=== PATIENT | female | born 1980 | race Caucasian/White ===

== ENCOUNTER 2017-06-03 09:09 | Emergency (ER) | payer OTHER ==
[~2017-06-03] VITALS: Ht 177.8 cm; Wt 132.4 kg
[~2017-06-03 09:09] MED LIST: LEVEMIR100 UNIT/1 INJ; METFORMIN HCL1000 MG PO; MONESSA PO; OMEPRAZOLE40 MG PO; PHENTERMINE H37.5 MG PO
[2017-06-03] MEDS ORDERED: ONDANSETRON HCL INJ 2 MG/ML VIAL IV STA (09:35)
[2017-06-03] MEDS ORDERED: SODIUM CHLORIDE 0.9% 1000ML 1,000 ML IV STA (09:35)
[2017-06-03] MEDS ORDERED: HYDROMORPHONE 1MG/1ML INJ IV STA (09:35)
[2017-06-03] MEDS ORDERED: PROMETHAZINE 25MG/ NS 50ML (IV) IV ONE (10:00)
[2017-06-03 10:13] LABS: BASOPHILS % 0.3 % (0.0-1.0); EOSINOPHILS # (AUTO) 0.1 (0.0-0.4); EOSINOPHILS % 1.2 % (0.0-6.0); HEMATOCRIT 38.6 % (34.2-44.1); HEMOGLOBIN 12.9 g/dL (12.0-16.0); LYMPHOCYTES # (AUTO) 1.8 (1.0-3.2); MEAN CORPUSCULAR HEMOGLOBIN 28.7 pg (28-32); MEAN CORPUSCULAR HGB CONC 33.4 g/dL (31-35); MONOCYTES # (AUTO) 0.6 (0.2-0.8); MONOCYTES % 5.4 % (4.4-11.3); NEUTROPHILS # (AUTO) 8.7 (2.1-6.9); NEUTROPHILS % 76.8 % (38.7-80.0); PLATELET COUNT 293 x10e3/uL (140-360); RED BLOOD COUNT 4.49 x10e6/uL (3.6-5.1)
[2017-06-03] MEDS ORDERED: DIATRIZOATE MEGL/DIATRIZOA SOD 30 ML BTL PO ONE (10:31)
[2017-06-03 10:34] LABS: ALANINE AMINOTRANSFERASE 14 IU/L (0-55); ALBUMIN 3.1 g/dL (3.5-5.0); ALBUMIN/GLOBULIN RATIO 0.9 (0.8-2.0); ALKALINE PHOSPHATASE 51 IU/L (40-150); AMYLASE 33 U/L (25-125); ANION GAP 13.6 mmol/L (8-16); BLOOD UREA NITROGEN 6 mg/dL (7-26); BUN/CREATININE RATIO 8 (6-25); CALCIUM 8.8 mg/dL (8.4-10.2); CARBON DIOXIDE 27 mmol/L (22-29); CHLORIDE 100 mmol/L (98-107); CREATININE, SERUM 0.75 mg/dL (0.57-1.11); EST GLOMERULAR FILTRATION RATE > 60 ML/MIN (60-); GLUCOSE 168 mg/dL (74-118); LIPASE 28 U/L (8-78); POTASSIUM 3.6 mmol/L (3.5-5.1); SODIUM 137 mmol/L (136-145)
[2017-06-03 11:40] LABS: BILIRUBIN,URINE NEGATIVE (NEGATIVE); KETONES,URINE NEGATIVE (NEGATIVE); LEUKOCYTE ESTERASE ,URINE NEGATIVE (NEGATIVE); NITRITE,URINE NEGATIVE (NEGATIVE); PROTEIN,URINE DIPSTICK NEGATIVE (NEGATIVE); URINE UROBILINOGEN 0.2 mg/dL (0.2 - 1)
[2017-06-03 11:41] LABS: CLARITY,URINE SL CLOUDY (CLEAR); COLOR,URINE YELLOW (YELLOW)
--- NOTE | 2017-06-03 11:41 | Diagnostic Imaging Report ---
PROCEDURE: CT ABDOMEN AND PELVIS WITH CONTRAST TECHNIQUE: The abdomen and pelvis were scanned utilizing a multidetector helical scanner from the diaphragm to the lesser trochanter after the IV administration of 100 cc of Isovue 370 and the oral administration of Gastrografin intermixed with water. Coronal and sagittal multiplanar reformations were obtained. DLP: 912.11 mGy-cm COMPARISON: None. INDICATIONS: ABDOMINAL PAIN FINDINGS: LOWER THORAX: Normal. HEPATOBILIARY: No focal hepatic lesions. No biliary ductal dilatation. SPLEEN: No splenomegaly. PANCREAS: No focal masses or ductal dilatation. ADRENALS: No adrenal nodules. KIDNEYS/URETERS: No hydronephrosis, stones, or solid mass lesions. Nonobstructing 3 mm stone at the left ureterovesical junction. PELVIC ORGANS/BLADDER: There is 4.4 cm right adnexal cyst and a 2.6 cm left adnexal cyst. PERITONEUM / RETROPERITONEUM: No free air or fluid. LYMPH NODES: No lymphadenopathy. VESSELS: Unremarkable. GI TRACT: No distention or wall thickening. Calcium containing pills in the cecum. There are clips near the cecum and appendiceal region. Single clip is present in the descending colon. BONES AND SOFT TISSUES: Mild degenerative changes of the thoracic and lumbar spine. IMPRESSION: 1. Nonobstructing distal left ureteral stone. 2. Bilateral adnexal cysts. Cb Prado D.O. Dictated by: Cb Prado D.O. on 06/03/2017 at 11:49 Electronically approved by: Cb Prado D.O. on 06/03/2017 at 11:49
[2017-06-03 12:01] LABS: BACTERIA,URINE RARE /HPF; EPITHELIAL CELLS,URINE RARE /LPF; RBC,URINE 0-5 /HPF (0-5); WBC,URINE (MAN) 0-5 /HPF (0-5)
[2017-06-03 12:45] VITALS: BP 141/96
[2017-06-03] MEDS ORDERED: SODIUM CHLORIDE 0.9% 50ML 50 ML ONE (17:35)
[2017-06-03] MEDS ORDERED: IOPAMIDOL 370 MG/ML 200 ML INFUS..BTL INJ ONE (17:35)
== END 2017-06-03 12:52 | disposition home or self-care (01) ==
LOC: ER 09:09
DX: R10.12 Left upper quadrant pain (principal); R11.2 Nausea with vomiting, unspecified; N20.1 Calculus of ureter; E11.9 Type 2 diabetes mellitus without complications; K21.9 Gastro-esophageal reflux disease without esophagitis
CPT/HCPCS: 36415; 74177; 80053; 81001; 82150; 83690; 85025; 87086; 96360; 99284; J1170; J2550; J7030; Q9967

== ENCOUNTER → 2017-06-26 | Outpatient (CLI) | payer OTHER ==
[~2017-06-26] MED LIST changes: +SINCALIDE 3 MCG/VIAL INJ ONE
--- NOTE | 2017-06-26 09:22 | Diagnostic Imaging Report ---
PROCEDURE:LIMITED ABDOMINAL ULTRASOUND COMPARISON:None. INDICATIONS:RUQ Pain FINDINGS: Liver: 15.1 cm. Increased hepatic parenchymal echogenicity. No focal mass. Main portal vein: 1.2 cm. Hepatopedal flow. Gallbladder: No echogenic calculi, gallbladder wall thickening, or pericholecystic fluid. Common Bile Duct: 4.0 mm. No echogenic filling defect. Sonographic Baez's sign: Negative. Right kidney: 12.8 cm. No solid or cystic mass, echogenic calculi, or hydronephrosis. Normal parenchymal echogenicity. The pancreas, inferior vena cava, and aorta were insufficiently visualized secondary to increased body habitus and overlying bowel gas. Ascites: None. CONCLUSION: 1. No acute sonographic abnormality. 2. Hepatic steatosis. Dictated by: Zach Anderson M.D. on 06/26/2017 at 9:31 Electronically approved by: Zach Anderson M.D. on 06/26/2017 at 9:31
--- NOTE | 2017-06-26 18:40 | Diagnostic Imaging Report ---
Hepatobiliary Scan with Gallbladder Ejection Fraction Clinical information: 36 F with RUQ abdominal pain; irritable bowel syndrome. Technique: Following intravenous administration of 6.8 millicuries of Tc-99m mebrofenin, dynamic images of the abdomen in the anterior projection were obtained through 30 minutes. Sincalide (CCK analog) 2.9 micrograms was administered intravenously over 30 minutes with additional imaging for determination of gallbladder ejection fraction. Discussion: Perfusion of the liver is normal. Extraction of tracer by the liver parenchyma is normal. Tracer appears promptly within the biliary tract. The gallbladder begins to fill at 5 minutes post injection of tracer and fills adequately. Tracer is seen in the small bowel by 25 minutes. There is no contractile response by the gallbladder to the pharmacologic dose of sincalide. No emptying of the gallbladder occurs during the 30 minute infusion. Impression: 1. Filling of the gallbladder excludes acute cystic duct obstruction/acute cholecystitis. 2. The gallbladder ejection fraction is undefined as there is no emptying of the gallbladder during the infusion of sincalide. This absence of a contractile response to sincalide supports the clinical diagnosis of chronic cholecystitis/gallbladder dyskinesia. Signed by: Dr. Shante Whittington M.D. on 06/26/2017 6:37 PM
== END ==
LOC: US 07:20
PROVIDERS: ATTEND Internal Medicine Gastroenterology
DX: R10.11 Right upper quadrant pain (principal)
CPT/HCPCS: 76705; 78227; A9537; J2805

== ENCOUNTER → 2017-08-02 | Day surgery (SDC) | payer OTHER ==
[2017-07-29 10:23] LABS: ALANINE AMINOTRANSFERASE 11 IU/L (0-55); ALBUMIN 3.3 g/dL (3.5-5.0); ALBUMIN/GLOBULIN RATIO 0.9 (0.8-2.0); ALKALINE PHOSPHATASE 49 IU/L (40-150); BLOOD UREA NITROGEN 7 mg/dL (7-26); BUN/CREATININE RATIO 11 (6-25); CALCIUM 8.8 mg/dL (8.4-10.2); CARBON DIOXIDE 27 mmol/L (22-29); CHLORIDE 99 mmol/L (98-107); CREATININE, SERUM 0.63 mg/dL (0.57-1.11); EST GLOMERULAR FILTRATION RATE > 60 ML/MIN (60-); GLUCOSE 142 mg/dL (74-118); SODIUM 135 mmol/L (136-145)
[2017-07-29 10:46] LABS: BASOPHILS # (AUTO) 0.1 (0.0-0.1); BASOPHILS % 0.6 % (0.0-1.0); EOSINOPHILS # (AUTO) 0.1 (0.0-0.4); EOSINOPHILS % 1.1 % (0.0-6.0); HEMATOCRIT 36.7 % (34.2-44.1); HEMOGLOBIN 12.1 g/dL (12.0-16.0); LYMPHOCYTES % 19.4 % (18.0-39.1); MEAN CORPUSCULAR HEMOGLOBIN 28.9 pg (28-32); MEAN CORPUSCULAR VOLUME 87.6 fL (81-99); MONOCYTES # (AUTO) 0.7 (0.2-0.8); MONOCYTES % 6.4 % (4.4-11.3); NEUTROPHILS # (AUTO) 7.5 (2.1-6.9); NEUTROPHILS % 72.2 % (38.7-80.0); PLATELET COUNT 306 x10e3/uL (140-360); RED BLOOD COUNT 4.19 x10e6/uL (3.6-5.1); RED CELL DISTRIBUTION WIDTH 12.4 % (11.7-14.4)
[~2017-08-02] MED LIST changes: +BUPIVACAINE 0.25% 30ML SDV INJ ONE; +CEFAZOLIN SOD 1 GM VIAL ONE; +DEXAMETHASONE SOD PHOS INJ 4 MG/ML VIAL ONE; +DICYCLOMINE HCL20 MG PO; +FEMYNOR PO; +FENTANYL CITRATE/PF 100MCG/2 ML INJ ONE; +GLYCOPYRROLATE INJ 1MG/ 5 ML SYR ONE; +LABETALOL HCL IV 5 MG/ML 20ML MDV ONE; +LIDOCAINE HCL 2% LOCAL INJ 5 ML SDV VIAL INJ ONE; +MIDAZOLAM HCL 2 MG/2 ML VIAL ONE; +NEOSTIGMINE 5 MG/5ML SYR ONE; +ONDANSETRON HCL INJ 2 MG/ML VIAL ONE; +PANTOPRAZOLE SO40 MG PO; +PROMETHAZINE HC25 M1 PO; +PROPOFOL IV EMULSION 10 MG/ML 20 ML VIAL ONE; +ROCURONIUM BROMIDE 10 MG/ML 5ML VIAL ONE; +SEVOFLURANE INHAL SOLN 250 ML PEN BTL ONE; -SINCALIDE 3 MCG/VIAL INJ ONE; +SULFASALAZINE500 MG PO; +TRULICITY SQ; +VSL #3 PO
--- OUTSIDE RECORDS SUMMARY | 2017-08-02 05:30 | XMS REPORT ---
Author Author [facility] Address Unknown Phone Unavailable Care Team Providers Care Case Repairer Name Role Phone ALLI HILL Unavailable Unavailable CARROLL LARSON Unavailable Unavailable Problems This patient has no known problems. Allergies, Adverse Reactions, Alerts This patient has no known allergies or adverse reactions. Medications This patient has no known medications. Results Test Description Test Time Test Comments Text Results Atomic Results Result Comments US ABDOMEN LIMITED [place] [address] Patient Name: ENRIQUE SO MR #: [id number] : 1980 Age/Sex: 36/F Req #: [id number] Adm Physician: Ordered by: ALLI HILL MD Report #: [id number] Location: US Room/Bed: Procedure: [id number] US/US ABDOMEN LIMITED Exam Date: Exam Time: REPORT STATUS: Signed PROCEDURE: LIMITED ABDOMINAL ULTRASOUND COMPARISON: None. INDICATIONS: RUQ Pain FINDINGS: Liver: 15.1 cm. Increased hepatic parenchymal echogenicity. No focal mass. Main portal vein: 1.2 cm. Hepatopedal flow. Gallbladder: No echogenic calculi, gallbladder wall thickening, or pericholecystic fluid. Common Bile Duct: 4.0 mm. No echogenic filling defect. Sonographic Baez's sign: Negative. Right kidney: 12.8 cm. No solid or cystic mass, echogenic calculi, or hydronephrosis. Normal parenchymal echogenicity. The pancreas, inferior vena cava, and aorta were insufficiently visualized secondary to increased body habitus and overlying bowel gas. Ascites : None. CONCLUSION: 1. No acute sonographic abnormality. 2. Hepatic steatosis. Dictated by: Warner Booth M.D. on 2017 at 9:31 Electronically approved by: Warner Booth M.D. on 06/26/2017 at 9:31 Dictated By: WARNER BOOTH MD 0 Transcribed By: CHYNA on 06/26/17930 COPY TO: ALLI HILL MD HEPTOBILIARY W PHARM [place] [address] Patient Name: ENRIQUE SO MR #: [id number] : 1980 Age/Sex: 36/F Req #: [id number] Adm Physician: Ordered by: ALLI HILL MD Report #: [id number] Location: Room/Bed: Procedure: [id number] NM/HEPTOBILIARY W PHARM Exam Date: 06/26/17 Exam Time: 1500 REPORT STATUS: Signed Hepatobiliary Scan with Gallbladder Ejection Fraction Clinical information: 36 F with RUQ abdominal pain; irritable bowel syndrome. Technique: Following intravenous administration of 6.8 millicuries of Tc-99m mebrofenin, dynamic images of the abdomen in the anterior projection were obtained through 30 minutes. Sincalide (CCK analog) 2.9 micrograms was administered intravenously over 30 minutes with additional imaging for determination of gallbladder ejection fraction. Discussion: Perfusion of the liver is normal. Extraction of tracer by the liver parenchyma is normal. Tracer appears promptly within the biliary tract. The gallbladder begins to fill at 5 minutes post injection of tracer and fills adequately. Tracer is seen in the small bowel by 25 minutes. There is no contractile response by the gallbladder to the pharmacologic dose of sincalide. No emptying of the gallbladder occurs during the 30 minute infusion. Impression: 1. Filling of the gallbladder excludes acute cystic duct obstruction/acute cholecystitis. 2. The gallbladder ejection fraction is undefined as there is no emptying of the gallbladder during the infusion of sincalide. This absence of a contractile response to sincalide supports the clinical diagnosis of chronic cholecystitis/gallbladder dyskinesia. Signed by: Dr. Reyna Whittington M.D. on 6:37 PM Dictated By: REYNA WHITTINGTON MD 36 Transcribed By: SAVANNAH on 06/26/171836 COPY TO: ALLI HILL MD CT ABDOMEN/PELVIS W [place] [address] Patient Name: ENRIQUE SO MR #: [id number] : 1980 Age/Sex: 36/F Req #: [id number] Adm Physician: Ordered by: CARROLL LARSON MD Report #: [id number] Location: ER Room/Bed: Procedure: [id number] CT/CT ABDOMEN/PELVIS W Exam Date: 06/03/17 Exam Time: 1109 REPORT STATUS: Signed PROCEDURE: CT ABDOMEN AND PELVIS WITH CONTRAST TECHNIQUE: The abdomen and pelvis were scanned utilizing a multidetector helical scanner from the diaphragm to the lesser trochanter after the IV administration of 100 cc of Isovue 370 and the oral administration of Gastrografin intermixed with water. Coronal and sagittal multiplanar reformations were obtained. DLP: 912.11 mGy- cm COMPARISON: None. INDICATIONS: ABDOMINAL PAIN FINDINGS: LOWER THORAX: Normal. HEPATOBILIARY: No focal hepatic lesions. No biliary ductal dilatation. SPLEEN: No splenomegaly. PANCREAS: No focal masses or ductal dilatation. ADRENALS: No adrenal nodules. KIDNEYS/ URETERS: No hydronephrosis, stones, or solid mass lesions. Nonobstructing 3 mm stone at the left ureterovesical junction. PELVIC ORGANS/BLADDER: There is 4.4 cm right adnexal cyst and a 2.6 cm left adnexal cyst. PERITONEUM / RETROPERITONEUM: No free air or fluid. LYMPH NODES: No lymphadenopathy. VESSELS: Unremarkable. GI TRACT: No distention or wall thickening. Calcium containing pills in the cecum. There are clips near the cecum and appendiceal region. Single clip is present in the descending colon. BONES AND SOFT TISSUES: Mild degenerative changes of the thoracic and lumbar spine. IMPRESSION: 1. Nonobstructing distal left ureteral stone. 2. Bilateral adnexal cysts. Angelia Prado D.O. Dictated by: Angelia Prado D.O. on 06/03/2017 at 11:49 Electronically approved by: Angelia Prado D.O. on 06/03/2017 at 11:49 Dictated By: ANGELIA PRADO DO [id number] COPY TO: CARROLL LARSON MD
--- NOTE | 2017-08-02 10:07 | Operative Report ---
DATE OF PROCEDURE: August 02, 2017 PREOPERATIVE DIAGNOSES 1. Biliary dyskinesia. 2. Obesity. 3. History of irritable bowel syndrome. POSTOPERATIVE DIAGNOSES 1. Biliary dyskinesia. 2. Obesity. 3. History of irritable bowel syndrome. 4. Cholesterolosis. INDICATIONS AND FINDINGS: A morbidly obese 36-year-old female admitted for laparoscopic cholecystectomy. History of multiple GI symptoms including cramps, nausea, diarrhea and pyrosis. She had EGD and colonoscopy preoperatively as well as a HIDA scan that revealed zero ejection fraction, but no stones. She preoperatively was advised and clearly understood that no guarantees were made regarding the results of the surgery. INTRAOPERATIVE FINDINGS: Cholesterolosis as well as chronic adhesions of the omentum to the gallbladder consistent with chronic acalculous cholecystitis. DESCRIPTION OF PROCEDURE: With the patient lying on the operating table in the supine position, after administration of general anesthesia, she was prepped and draped for laparoscopic cholecystectomy. The procedure was begun by establishing a pneumoperitoneum in the right upper quadrant mid-clavicular line because of her obesity. A pneumoperitoneum was insufflated to 15 mm of pressure, and then the 5 trocar was placed in that location. Under direct vision with a camera, we placed a 10-11 umbilical trocar. Then the 10-mm camera was introduced in the umbilical site. The patient was rotated to the left and with the head up, and we placed a 10-mm subxiphoid port, and finally a right anterior axillary line trocar was placed. The gallbladder was retracted cephalad using grasping forceps through the two 5-mm trocars, and the dissection on the gallbladder was begun, detaching the omentum that was stuck to the gallbladder as well as the stomach until we exposed the hepatoduodenal ligament. The cystic duct was identified as well as the cystic artery and common duct. At that point, we transected the cystic duct distally 3 times and once proximally. Then the cystic artery was transected between titanium clips also, and then the gallbladder was taken down from the liver bed using electrocautery dissection. The gallbladder was detached and placed in an Endo bag and removed through the umbilical port easily. Then we reinsufflated the pneumoperitoneum, inspected the operative field and irrigated the abdomen. There was no bile leak, no bleeding, no apparent bowel injury. Before closing, we removed all the fluid and then closed the wounds using #0 Vicryl for the umbilical fascia, 3-0 Vicryl for the subcutaneous tissue in that location as well as the subxiphoid port, and the skin of all the ports was closed using nay. Marcaine 0.25% with epinephrine was given as a local block at the end of the case. Job#: [id number]
== END | disposition home or self-care (01) ==
LOC: OR 05:28
PROVIDERS: ATTEND Surgery
DX: K81.1 Chronic cholecystitis (principal); K58.9 Irritable bowel syndrome, unspecified; K21.9 Gastro-esophageal reflux disease without esophagitis; E66.01 Morbid (severe) obesity due to excess calories; E11.9 Type 2 diabetes mellitus without complications; N20.0 Calculus of kidney; Z72.0 Tobacco use; Z01.812 Encounter for preprocedural laboratory examination; Z79.4 Long term (current) use of insulin
CPT/HCPCS: 36415 ×2; 47562; 80053; 81025; 82948; 85025; 88304; C1766; J0690; J1100; J2001; J2250; J2405; J3490

== ENCOUNTER 2017-10-28 18:40 | Emergency (ER) | payer OTHER ==
[~2017-10-28] VITALS: Ht 177.8 cm; Wt 132.4 kg
[2017-10-28] MEDS ORDERED: SODIUM CHLORIDE 0.9% 1000ML 1,000 ML IV STA (21:36)
[2017-10-28] MEDS ORDERED: MORPHINE SULFATE 4 MG/ML SYR IV STA (21:36)
[2017-10-28] MEDS ORDERED: ONDANSETRON HCL 4 MG ORAL DISINTEGRATING TAB PO NR (21:45)
[2017-10-28 22:03] LABS: BILIRUBIN,URINE NEGATIVE (NEGATIVE); CLARITY,URINE CLEAR (CLEAR); COLOR,URINE YELLOW (YELLOW); KETONES,URINE 1+ (NEGATIVE); LEUKOCYTE ESTERASE ,URINE 1+ (NEGATIVE); NITRITE,URINE NEGATIVE (NEGATIVE); PROTEIN,URINE DIPSTICK NEGATIVE (NEGATIVE); URINE UROBILINOGEN 0.2 mg/dL (0.2 - 1)
[2017-10-28 22:04] LABS: BASOPHILS # (AUTO) 0.1 (0.0-0.1); BASOPHILS % 0.5 % (0.0-1.0); EOSINOPHILS # (AUTO) 0.1 (0.0-0.4); EOSINOPHILS % 0.6 % (0.0-6.0); HEMATOCRIT 38.7 % (34.2-44.1); HEMOGLOBIN 12.9 g/dL (12.0-16.0); LYMPHOCYTES # (AUTO) 2.1 (1.0-3.2); LYMPHOCYTES % 17.3 % (18.0-39.1); MEAN CORPUSCULAR HGB CONC 33.3 g/dL (31-35); MONOCYTES # (AUTO) 0.9 (0.2-0.8); MONOCYTES % 7.1 % (4.4-11.3); NEUTROPHILS # (AUTO) 8.9 (2.1-6.9); NEUTROPHILS % 74.2 % (38.7-80.0); PLATELET COUNT 281 x10e3/uL (140-360); RED BLOOD COUNT 4.45 x10e6/uL (3.6-5.1); RED CELL DISTRIBUTION WIDTH 13.3 % (11.7-14.4)
[2017-10-28 22:16] LABS: BACTERIA,URINE RARE /HPF; EPITHELIAL CELLS,URINE MODERATE /LPF; MUCUS,URINE FEW (RARE)
[2017-10-28 22:22] LABS: ALANINE AMINOTRANSFERASE 13 IU/L (0-55); ALBUMIN 3.4 g/dL (3.5-5.0); ALBUMIN/GLOBULIN RATIO 0.9 (0.8-2.0); ALKALINE PHOSPHATASE 48 IU/L (40-150); ANION GAP 16.1 mmol/L (8-16); BLOOD UREA NITROGEN 8 mg/dL (7-26); BUN/CREATININE RATIO 12 (6-25); CALCIUM 9.4 mg/dL (8.4-10.2); CARBON DIOXIDE 24 mmol/L (22-29); CHLORIDE 100 mmol/L (98-107); CREATININE, SERUM 0.67 mg/dL (0.57-1.11); EST GLOMERULAR FILTRATION RATE > 60 ML/MIN (60-); GLUCOSE 82 mg/dL (74-118); POTASSIUM 4.1 mmol/L (3.5-5.1); SODIUM 136 mmol/L (136-145)
== END 2017-10-28 23:01 | disposition left against medical advice (07) ==
LOC: ER 18:40
DX: R10.31 Right lower quadrant pain (principal); R11.0 Nausea; E11.9 Type 2 diabetes mellitus without complications; K50.90 Crohn's disease, unspecified, without complications; K58.9 Irritable bowel syndrome, unspecified; K21.9 Gastro-esophageal reflux disease without esophagitis
CPT/HCPCS: 36415; 80053; 81001; 85025; 99282

== ENCOUNTER → 2017-10-28 | Outpatient (CLI) | payer OTHER ==
[~2017-10-28] MED LIST changes: -BUPIVACAINE 0.25% 30ML SDV INJ ONE; -CEFAZOLIN SOD 1 GM VIAL ONE; -DEXAMETHASONE SOD PHOS INJ 4 MG/ML VIAL ONE; -FENTANYL CITRATE/PF 100MCG/2 ML INJ ONE; -GLYCOPYRROLATE INJ 1MG/ 5 ML SYR ONE; -LABETALOL HCL IV 5 MG/ML 20ML MDV ONE; -LIDOCAINE HCL 2% LOCAL INJ 5 ML SDV VIAL INJ ONE; -MIDAZOLAM HCL 2 MG/2 ML VIAL ONE; -NEOSTIGMINE 5 MG/5ML SYR ONE; -ONDANSETRON HCL INJ 2 MG/ML VIAL ONE; -PROPOFOL IV EMULSION 10 MG/ML 20 ML VIAL ONE; -ROCURONIUM BROMIDE 10 MG/ML 5ML VIAL ONE; -SEVOFLURANE INHAL SOLN 250 ML PEN BTL ONE
== END ==
LOC: DX 09-25 08:16
PROVIDERS: ATTEND Internal Medicine Gastroenterology
DX: R10.9 Unspecified abdominal pain (principal); R11.0 Nausea
CPT/HCPCS: 74250; 81025

== ENCOUNTER → 2017-12-13 | Outpatient (CLI) | payer OTHER ==
--- NOTE | 2017-12-13 13:11 | Diagnostic Imaging Report ---
PROCEDURE:X-RAY ABDOMEN - KUB COMPARISON:Same day CT. INDICATIONS:CALCULUS OF THE KIDNEY FINDINGS: There is a non-obstructed bowel-gas pattern. There are no calcifications projected over the renal shadows, expected course of the ureters or bladder. There are no acute osseous abnormalities. Right upper quadrant cholecystectomy clips. CONCLUSION: Normal abdominal radiograph. Dictated by: Efrem Uriarte M.D. on 12/13/2017 at 13:15 Electronically approved by: Efrem Uriarte M.D. on 12/13/2017 at 13:15
--- NOTE | 2017-12-13 13:26 | Diagnostic Imaging Report ---
EXAM: CT Abdomen and Pelvis WITHOUT contrast INDICATION: \S\CALCULUS OF KIDNEY COMPARISON: CT dated 06/03/2017 TECHNIQUE: Abdomen and pelvis were scanned utilizing a multidetector helical scanner from the lung base to the pubic symphysis without administration of IV contrast. Absence of intravenous contrast decreases sensitivity for detection of focal lesions and vascular pathology. Coronal and sagittal reformations were obtained. Routine protocol was performed. IV CONTRAST: None ORAL CONTRAST: Water COMPLICATIONS: None RADIATION DOSE: Total DLP: 840.97 mGy*cm Estimated effective dose: (DLP x 0.015 x size factor) mSv CTDIvol has been reviewed. It is below the limits set by the Radiation Protocol Committee (RPC). FINDINGS: LINES and TUBES: None. LOWER THORAX: Unremarkable HEPATOBILIARY: Unenhanced liver is unremarkable. Hepatomegaly. No biliary ductal dilation. GALLBLADDER: Cholecystectomy. SPLEEN: No splenomegaly. PANCREAS: No focal masses or ductal dilatation. ADRENALS: No adrenal nodules KIDNEYS/URETERS: No hydronephrosis. Limited for evaluation of renal parenchyma without intravenous contrast. No stones. GI TRACT: No abnormal distention, wall thickening, or evidence of bowel obstruction. Appendix is surgically absent. PELVIC ORGANS/BLADDER: Unremarkable. Pelvic phleboliths. LYMPH NODES: No lymphadenopathy. VESSELS: Unremarkable. PERITONEUM / RETROPERITONEUM: No free air or fluid. BONES: Unremarkable. SOFT TISSUES: Unremarkable. IMPRESSION: 1. No nephrolithiasis or evidence of obstructive urolithiasis. Signed by: Dr. Efrem Uriarte MD on 12/13/2017 1:23 PM
== END ==
LOC: CT 11:56
PROVIDERS: ATTEND Urology
DX: N20.0 Calculus of kidney (principal)
CPT/HCPCS: 74018; 74176

== ENCOUNTER → 2018-08-07 | Outpatient (CLI) | payer OTHER ==
[~2018-08-07] MED LIST changes: +BIRTH CONTROL; +IRON18 MG; +REGLAN; +TOUJEO SQ; +TRULANCE; +VITAMIN B-121000 MCG PO; +VITAMIN B12-FO1 EACH; +VITAMIN C500 M2; +VITAMIN D
--- NOTE | 2018-08-07 14:58 | Diagnostic Imaging Report ---
Examination: Fluoroscopic small bowel series Clinical indication: Anemia, concern for Crohn's. Comparison examination: CT abdomen and pelvis without contrast 12/13/2017. Technique: Barium was ingested by mouth and multiple fluoroscopic spot images as well as overhead images were obtained of the small bowel. Total fluoroscopy time: 0.4 minutes Air Kerma: 26.3 mGy Findings: Mechanical Design Engineer radiograph shows a nonobstructive bowel gas pattern. Surgical clips are noted in the right lower and right upper quadrant. Regional skeletal structures are intact. No mass effect or organomegaly. Small bowel loops are normal in caliber and distribution. No fixed stricture. Spot compression views of the terminal ileum are unremarkable. Peristalsis, as observed under fluoroscopy, is normal. Transit time is normal. Impression: Unremarkable fluoroscopic small bowel series. Signed by: Dr. Jose Parks M.D. on 08/07/2018 2:55 PM
== END ==
LOC: DX 07:24
PROVIDERS: ATTEND Internal Medicine Gastroenterology
DX: D64.9 Anemia, unspecified (principal)
CPT/HCPCS: 74250; 81025

== ENCOUNTER → 2019-08-21 | Day surgery (SDC) | payer OTHER ==
[~2019-08-21] MED LIST changes: +DEXMEDETOMIDINE HCL 200 MCG/2 ML VIAL ONE; +FENTANYL CITRATE/PF 100MCG/2 ML INJ ONE; +FOLIC ACID PO; +GABAPENTIN300 MG PO; +HYOSCYAMINE 0.125 MG TAB ONE; +METOCLOPRAMIDE HCL 10 MG/2ML VIAL ONE; +MIDAZOLAM HCL 2 MG/2 ML VIAL ONE; +PANTOPRAZOLE 40 MG 10ML VIAL ONE; +PROPOFOL IV EMULSION 10 MG/ML 50 ML VIAL ONE
--- OUTSIDE RECORDS SUMMARY | 2019-08-21 09:19 | XMS REPORT | Summary of Care ---
Author Author Basilio Lopez Unknown Address Unknown Phone Unavailable Care Team Providers Care Certifed Refrigeration Operator Name Role Phone R.N. 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 R.N. * Start : 11-Dec-2017 Active Protonix 40 MG Oral Packet 1 tablet twice a day * Refills: 0 R.N. * Start : 11-Dec-2017 Active Metoclopramide HCl - 10 MG Oral Tablet TAKE 1 TABLET 4 TIMES DAILY, BEFORE MEALS AND AT BEDTIME. * Refills: 0 R.N. * Start : 11-Dec-2017 Active Budesonide 3 MG Oral Capsule Delayed Release Particles 3 tablets daily * Refills: 0 R.N. * Start : 11-Dec-2017 Active SulfaSALAzine 500 MG Oral Tablet TAKE 2 TABLETS TWICE DAILY. Start at 500mg daily, and increase based on titrati on schedule provided. * Quantity: 120 Refills: 1 R.N. * Start : 11-Dec-2017 Active Phentermine HCl - 37.5 MG Oral Capsule TAKE 1 CAPSULE EVERY MORNING BEFORE BREAKFAST. * Quantity: 30 Refills: 0 R.N. * Start : 11-Dec-2017 Active Toujeo SoloStar 300 UNIT/ML Subcutaneous Solution Pen-injector * Refills: 0 R.N. * Start : 11-Dec-2017 Active VSL#3 Oral Capsule * Refills: 0 R.N. * Start : 11-Dec-2017 Active Allergies and Adverse Reactions Name Dates Details codeine (Allergy) Status: Active Past Medical History Name Dates Details History of colon polyps (V12.72, Z86.010) Status: Resolved History of diabetes mellitus (V12.29, Z86.39) Status: Resolved History of gastritis (V12.79, Z87.19) Status: Resolved History of kidney problems (V13.09, Z87.448) Status: Resolved Procedures Procedure Dates Details History of Knee Surgery Completed History of Gallbladder surgery Completed History of Appendectomy Completed History of Wrist fracture repair Completed History of Foot surgery Completed Immunization Name Dates Details Immunizations not documented Family History Name Dates Details Family history of diabetes mellitus (V18.0, Z83.3) Status: Active Name Dates Details Family history of lung cancer (V16.1, Z80.1) Status: Active Family history of diabetes mellitus (V18.0, Z83.3) Status: Active Family history of High cholesterol (272.0, E78.00) Status: Active Family history of hypertension (V17.49, Z82.49) Status: Active Family history of chronic obstructive pulmonary disease (V17.6, Z82.5) Status: Active Social History Name Dates Details - Status: Name Dates Details Former smoker Vital Signs Date Test Result Details No Known Vitals to report Results Date Description Value Details Results not documented Plan of Care Name Dates Details Planned Observations Planned Goals not documented Planned Encounters Appointment; RASHEL IBANEZ M.D. On: 02-Jun-2018 9:45 Instructions Name Dates Details Instructions not documented Encounters Appointment; RASHEL IBANEZ M.D. Encounter Diagnosis: Problem not documented On: 11-Dec-2017 9:30
[2019-08-21 15:10] VITALS: BP 171/82
[2019-08-21 22:14] LABS: WBC,FECAL (FECAL LACTOFERRIN) NEGATIVE (NEGATIVE)
--- NOTE | 2019-08-21 22:55 | Operative Report ---
DATE OF PROCEDURE: 08/21/2019 SURGEON: Juarez Angel MD PROCEDURE: Colonoscopy with polypectomy and biopsies. INDICATIONS FOR COLONOSCOPY: Lower abdominal pain, diarrhea, intermittent. Personal history of colon polyps. MEDICATIONS: The patient was done under MAC, please see anesthesiologist's note. PROCEDURE IN DETAIL: With the patient in left lateral decubitus position, flexible fiberoptic Olympus colonoscope was inserted into the rectum with ease and advanced all the way to the cecum. Mucosa overlying the cecum appeared to be within normal limits. The ileocecal valve was intubated and the scope was advanced into the terminal ileum. Biopsies were obtained. The scope was then withdrawn back into the colon. Mucosa overlying the cecum and ascending colon appeared to be within normal limits. One polyp was hot biopsied from the distal transverse colon and site was hemoclipped x1. Mild patchy inflammatory changes were noted in the left colon and the rectum. Biopsies were obtained. One polyp was hot biopsied from the sigmoid colon. The scope was then retroflexed into the distal rectum and small internal hemorrhoids were noted, none of which were actively bleeding. The scope was then straightened out. It was subsequently withdrawn after securing an adequate stool specimen that was sent for the appropriate stool studies. The patient tolerated the procedure well. IMPRESSION: 1. Transverse colon polyp, hot biopsied and site hemoclipped. 2. Mild patchy left-sided colitis. 3. Sigmoid colon polyp, hot biopsied. 4. Proctitis, mild. 5. Internal hemorrhoids, none actively bleeding. PLAN: Follow up histology. Initiate Bentyl 20 mg one p.o. q.i.d. and VSL #3 one p.o. b.i.d. The patient might benefit from a followup colonoscopy in 3 years. Juarez Angel MD [facility] [place]/MODL /[id number] cc: Angelica Crawford MD
[2019-08-22 14:43] LABS: C DIFFICILE TOXIN A&B AMP PROB NEGATIVE (NEGATIVE)
== END | disposition home or self-care (01) ==
LOC: OR 09:09
PROVIDERS: ATTEND Internal Medicine Gastroenterology
DX: K51.50 Left sided colitis without complications (principal); D12.3 Benign neoplasm of transverse colon; K62.89 Other specified diseases of anus and rectum; K59.00 Constipation, unspecified; K64.8 Other hemorrhoids; K29.70 Gastritis, unspecified, without bleeding; K21.9 Gastro-esophageal reflux disease without esophagitis; K20.8 Other esophagitis; R03.0 Elevated blood-pressure reading, without diagnosis of hypertension; E78.5 Hyperlipidemia, unspecified; E11.9 Type 2 diabetes mellitus without complications; K44.9 Diaphragmatic hernia without obstruction or gangrene; F17.210 Nicotine dependence, cigarettes, uncomplicated; Z88.6 Allergy status to analgesic agent; Z88.8 Allergy status to other drugs, medicaments and biological substances; Z91.018 Allergy to other foods; Z01.810 Encounter for preprocedural cardiovascular examination; Z68.36 Body mass index [BMI] 36.0-36.9, adult; Z87.442 Personal history of urinary calculi; Z80.0 Family history of malignant neoplasm of digestive organs
CPT/HCPCS: 45380; 45384; 81025; 83630; 83993; 87045; 87177; 87328; 87493; 93005; C9113; J2250; J2704; J2765; J3010; 45378

== ENCOUNTER 2020-03-17 12:29 | Emergency (ER) | payer OTHER ==
[~2020-03-17] VITALS: Ht 177.8 cm; Wt 120.3 kg
[~2020-03-17 12:29] MED LIST changes: -DEXMEDETOMIDINE HCL 200 MCG/2 ML VIAL ONE; -FENTANYL CITRATE/PF 100MCG/2 ML INJ ONE; -HYOSCYAMINE 0.125 MG TAB ONE; -METOCLOPRAMIDE HCL 10 MG/2ML VIAL ONE; -MIDAZOLAM HCL 2 MG/2 ML VIAL ONE; -PANTOPRAZOLE 40 MG 10ML VIAL ONE; -PROPOFOL IV EMULSION 10 MG/ML 50 ML VIAL ONE
[2020-03-17] MEDS ORDERED: KETOROLAC TROMETHAMINE 30 MG/ML VIAL IV STA (12:58)
--- NOTE | 2020-03-17 13:04 | Emergency Department Note ---
History of Present Illnes History of Present Illness Chief Complaint: headache starting this morning History of Present Illness This is a 39 year old female . 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 Any updates have been documented here. Past Medical History Past Medical History: Diabetes Other Medical History: IBS, GERD, CHRON'S, Past Surgical History: Cholecysctectomy, Appendectomy Other Surgery: RIGHT KNEE SX Social History Smoking Cessation: Never Smoker Counseling Performed: No Alcohol Use: None Any Illegal Drug Use: No TB Exposure/Symptoms: No Physically hurt or threatened: No Other Last Tetanus: UNK Any Pre-Existing Lines (PICC,: No Is patient up to date on immun: No Review of Systems Review of Systems Constitutional: Reports no symptoms EENTM: Reports no symptoms Cardiovascular: Reports no symptoms Respiratory: Reports no symptoms Gastrointestinal: Reports no symptoms Genitourinary: Reports no symptoms Musculoskeletal: Reports no symptoms Integumentary: Reports no symptoms Neurological: Reports as per HPI Psychological: Reports no symptoms Endocrine: Reports no symptoms Hematological/Lymphatic: Reports no symptoms Review of other systems: All other systems negative Physical Exam Related Data Allergies: Coded Allergies: metformin (Verified Allergy, Severe, 10/28/17) codeine (Verified Allergy, Unknown, 10/28/17) Vital signs reviewed: Yes Physical Exam CONSTITUTIONAL Constitutional: Present well-developed, Present obese HENT HENT: Present normocephalic, Present atraumatic, Present oropharynx clear/moist, Present oropharynx normal EYES Eyes: Reports PERRL, Reports conjunctivae normal NECK Neck: Present ROM normal, Present supple PULMONARY Pulmonary: Present effort normal, Present breath sounds normal CARDIOVASCULAR Cardiovascular: Present regular rhythm, Present heart sounds normal, Present intact distal pulses, Present capillary refill normal GASTROINTESTINAL Abdominal: Present soft, Present bowel sounds normal GENITOURINARY Genitourinary: Present exam deferred SKIN Skin: Present warm, Present dry MUSCULOSKELETAL Musculoskeletal: Present ROM normal NEUROLOGICAL Neurological: Present alert, Present oriented x 3, Present DTRs normal, Present no gross motor or sensory deficits PSYCHOLOGICAL Psychological: Present mood/affect normal, Present behavior normal, Present thought content normal, Present judgement normal Results Laboratory Laboratory cbc wnl except wbc 10.8, chem wnl cardiac markers sent to [facility] because our machine not working U/A trace leukocytes and small blood Cardiac markers wnl Imaging Imaging results reviewed: Yes Impressions cxr and ct brain NAD Diagnostics Tests Diagnostic test(s) reviewed: Yes Diagnostic comments nsr with sinus arrthythmia poor r wave progression otherwisee wnl Assessment & Plan Medical Decision Making MDM headache blood pressure issues resolved without intervention in the ED. Will send home on ultram ( pt states has taken in the past without adverse reaction) and macrobid Assessment & Plan Final Impression: (1) UTI (urinary tract infection) (2) Headache Depart Disposition: HOME, S[facility] Meds Active Scripts Nitrofurantoin Monohyd/M-Cryst (MACROBID 100 MG CAPSULE) 100 Mg Capsule, 100 MG PO BIDWM PRN for uti for 7 Days, #14 CAP 0 Refills Prov:ROLAND CASTILLO MD 03/17/20 Tramadol Hcl (ULTRAM) 50 Mg Tablet, 50 MG PO Q6H PRN for headache for 5 Days, #20 TAB 0 Refills Prov:ROLAND CASTILLO MD 03/17/20 Reported Medications Gabapentin (GABAPENTIN) 300 Mg Capsule, 600 MG PO HS, #60 CAP 08/19/19 Pantoprazole Sodium* (PROTONIX) 40 Mg Tablet.dr, 40 MG PO BID, TAB 08/19/19 [Folic Acid] No Conflict Check, PO DAILY 08/19/19 [Toujeo] No Conflict Check, 5 UNITS SQ DAILY 06/13/18 [ Control] No Conflict Check, DAILY 06/13/18 [Reglan] 4 MG No Conflict Check, 4 MG QID 06/13/18 Sulfasalazine (SULFASALAZINE) 500 Mg Tab, 500 MG PO QID, #30 TAB 07/31/17 [Trulicity] No Conflict Check, 1.5 UNIT SQ WEEKLY 07/31/17 Dicyclomine Hcl (DICYCLOMINE HCL) 20 Mg Tablet, 20 MG PO QID, TAB 07/31/17 Phentermine Hcl (PHENTERMINE HCL) 37.5 Mg Capsule, 37.5 MG PO DAILY 05/24/17 ROLAND CASTILLO MD Mar 17, 2020 13:04
--- OUTSIDE RECORDS SUMMARY | 2020-03-17 13:08 | XMS REPORT | Continuity of Care Document ---
Author Author [facility] t Organization [facility] Address [address] [place] [address] Phone Unavailable Care Team Providers Care Instant Powder Supervisor Name Role Phone ALLI HLIL MD PCP ALLI HILL Attphys Unavailable JADYN STEVENS Attphys Unavailable RASHEL IBANEZ M.D. Attphys Unavailable Floyd LARSON Attphys Unavailable Payers Payer Name Policy Type Policy Number Effective Date Expiration Date Macho wade [facility] [id number] 2011 00:00:00 [facility] Problems Condition Name Condition Details Condition Category Status Onset Date Resolution Date Last Treatment Date Treating Clinician Comments Source 719.4 - PAIN IN JOINT 719. 4 - PAIN IN JOINT Active 04/14/2012 BRITTNI Saldaña Diagnosis Active 2012-04-14 00:01:00 2012-04-14 09:55:00 [facility] History of colon polyps History of colon polyps Problem HL7.CCDAR2 Res olved [facility] History of diabetes mellitus History of diabetes mellitus Proble m HL7.CCDAR2 Resolved [facility] History of gastritis History of gastritis Problem HL7.CCDAR2 Resolved [facility] History of kidney problems History of kidney problems Problem HL 7.CCDAR2 Resolved [facility] Insulin dependent diabetes mellitus Insulin dependent diabet es mellitus Problem HL7.CCDAR2 Active [facility] Crohn's disease Crohn's disease Problem HL7.CCDAR2 Active [facility] Allergies, Adverse Reactions, Alerts Allergy Name Allergy Type Status Severity Reaction(s) Onset Date Inacti ve Date Treating Clinician Comments Source Codeine Allergy to Substance Active 2017-10-28 00:00:00 [facility] Metformin Allergy to Substance Active Severe 2017-10-28 00:00:00 [facility] Family History Family Member Diagnosis Comments Start Date Stop Date Source Mother Family history of diabetes mellitus [facility] Father Family history of lung cancer [facility] Father Family history of diabetes mellitus [facility] Father Family history of High cholesterol [facility] Father Family history of hypertension [facility] Father Family history of chronic obstructive pulmonary disease [facility] Social History Smoking Status Start Date Stop Date Source Former smoker [facility] Medications Ordered Medication Name Filled Medication Name Start Date Stop Da te Current Medication? Ordering Clinician Indication Dosage Frequency Signature (SIG) Comments Components Source Dicyclomine HCl - 20 MG Oral Tablet Dicyclomine HCl - 20 MG Oral Tablet 2017-12-11 00:00:00 Yes R.N. Q0.25D TAKE 1 TABLET 4 TI MES DAILY. [facility] Protonix 40 MG Oral Packet Protonix 40 MG Oral Packet 2017-12-11 00:0 0:00 Yes R.N. 1 tablet twice a day [facility] Metoclopramide HCl - 10 MG Oral Tablet Metoclopramide HCl - 10 MG Oral Tablet 2017-12-11 00:00:00 Yes R.N. Q0.25D TAKE 1 TABLET 4 TIMES DAILY, BEFORE MEALS AND AT BEDTIME. [facility] Budesonide 3 MG Oral Capsule Delayed Release Particles Budesonide 3 MG Oral Capsule Delayed Release Particles 2017-12-11 00:00:00 Yes R.N. 3 tablets daily [facility] SulfaSALAzine 500 MG Oral Tablet SulfaSALAzine 500 MG Oral T ablet 2017-12-11 00:00:00 Yes R.N. TAKE 2 TAB LETS TWICE DAILY. Start at 500mg daily, and increase based on titration schedule provided. [facility] Phentermine HCl - 37.5 MG Oral Capsule Phentermine HCl - 37. 5 MG Oral Capsule 2017-12-11 00:00:00 Yes R.N. QD TAKE 1 CAPSULE EVERY MORNING BEFORE BREAKFAST. [facility] Toufederico SoloStar 300 UNIT/ML Subcutaneous Solution Pen- injector Toujeo SoloStar 300 UNIT/ML Subcutaneous Solution Pen-injector 2017-12-11 00:00:00 Wayne s R.Tu [facility] VSL#3 Oral Capsule VSL#3 Oral Capsule 2017-12-11 00:00:00 Yes R.N. [facility] Dicyclomine Hcl 20 Mg Tablet Dicyclomine Hcl 20 Mg Tablet Y es 20 Four Times Daily [facility] Femynor Femynor Yes 1 Daily [facility] Insulin Detemir (Levemir) 100 Unit/1 Ml Vial Insulin D etemir (Levemir) 100 Unit/1 Ml Vial Yes 10 Daily [facility] Pantoprazole Sodium (Protonix) 40 Mg Tablet. Pantopr azole Sodium (Protonix) 40 Mg Tablet. Yes 40 Twice A Day C [facility] Phentermine Hcl 37.5 Mg Capsule Phentermine Hcl 37.5 Mg Capsule Yes 1 Daily [facility] Promethazine Hcl 25 Mg Tablet Promethazine Hcl 25 Mg Tablet Yes 25 As Needed as needed for Nausea [facility] Sulfasalazine 500 Mg Tab Sulfasalazine 500 Mg Tab Yes 500 Four Times Daily [facility] Trulicity Trulicity Yes 1.5 Weekly [facility] Vsl #3 Vsl #3 Yes 1 Twice A Day [facility] Monessa , 1 Tab Oral Monessa , 1 Tab Oral 2017-07-31 00:00:00 No 1 Daily [facility] Omeprazole 40 Mg Capsule., 40 Mg Oral Omeprazole 40 Mg Cap joseph., 40 Mg Oral 2017-07-31 00:00:00 No 40 Daily [facility] Metformin Hcl 1,000 Mg Tablet, 1000 Mg Oral Metformin Hcl 1,000 Mg Tablet, 1000 Mg Oral 2017-05-24 00:00:00 No 1000 Twice A Day [facility] Vital Signs Vital Name Observation Time Observation Value Comments Source BP Systolic 2017-12-11 09:32:00 128 mm[Hg] [facility] BP Diastolic 2017-12-11 09:32:00 82 mm[Hg] [facility] Height 2017-12-11 09:32:00 70 [in_us] [facility] Weight 2017-12-11 09:32:00 261 [lb_av] [facility] Body Mass Index Calculated 2017-12-11 09:32:00 37.45 kg/m2 [facility] Temperature 2017-12-11 09:32:00 97.8 [degF] Method: Temporal [facility] Heart Rate 2017-12-11 09:32:00 80 /min [facility] Respiration Rate 2017-12-11 09:32:00 16 /min [facility] Procedures Procedure Date / Time Performed Performing Clinician [facility] e Computed tomography of abdomen and pelvis with contrast 2017 00:00:00 CAREN MEDINA [facility] LAPAROSCOPIC CHOLECYSTECTOMY 2017-08-02 00:00:00 ASAF CLAUDIO [facility] US abdomen limited 2017-06-26 00:00:00 ALLI HILL [facility] Computed tomography of abdomen and pelvis with contrast 2016 00:00:00 CARROLL LARSON [facility] EGD BIOPSY SINGLE/MULTIPLE 2017-05-27 00:00:00 ALLI HILL [facility] COLONOSCOPY W/LESION REMOVAL 2017-05-27 00:00:00 ALLI HILL [facility] COLONOSCOPY W/LESION REMOVAL 2017-05-27 00:00:00 ALLI HILL [facility] History of Knee Surgery [facility] of Appendectomy [facility] History of Wrist fracture repair [facility] History of Foot surgery [facility] Encounters Start Date/Time End Date/Time Encounter Type Admission Type Att[facility] Care Department Encounter ID Source 2017-12-11 09:30:00 2017-12-11 09:30:00 Appointment; RASHEL IBANEZ M .D. BAI, KRISTY, M.D. [facility] [id number] [facility] 2017-10-28 18:40:00 2017-10-28 23:01:00 Departed Emergency Room [facility] [id number] [facility] 2017-10-28 07:38:00 2017-10-28 07:38:00 Registered Clinic YARA SERGIO ALLI [facility] [id number] [facility] 2017-08-02 05:28:00 2017-08-02 05:28:00 Registered Surgical Day Care [facility] [id number] [facility] 2017-06-26 07:20:00 2017-06-26 07:20:00 Registered Clinic ALLI AVILA [facility] [id number] [facility] 2017-06-03 09:09:00 2017-06-03 12:52:00 Departed Emergency Room ER CARROLL LARSON [facility] [id number] [facility] 2017-05-27 08:06:00 2017-05-27 08:06:00 Registered Surgical Day Care [facility] [id number] [facility] Results Test Description Test Time Test Comments Results Result Comments Source SMALL BOWEL SERIES 2018-08-07 14:51:00 [place] [address] 5 Patient Name: ENRIQUE SO MR #: [id number] : 1980 Age/Sex: 37/F Req #: [id number] Adm Physician: Ordered by: ALLI HILL MD Report #: [id number] Location: DX Room/Bed: Procedure: [id number] DX/SMALL BOWEL SERIES Exam Date: 08/07/18 Exam Time: 729 REPORT STATUS: Signed Examination: Fluoroscopic small bowel series Clinical indication: Anemia, concern for Crohn's. Comparison examination: CT abdomen and pelvis without contrast 12/13/2017. Technique: Barium was ingested by mouth and multiple fluoroscopic spot images as well as overhead images were obtained of the small bowel. Total fluoroscopy time: 0.4 minutes Air Kerma: 26.3 mGy Findings: Roll Threader Operator radiograph shows a nonobstructive bowel gas pattern. Surgical clips are noted in the right lower and right upper quadrant. Regional skeletal structures are intact. No mass effect or organomegaly. Small bowel loops are normal in caliber and distribution. No fixed stricture. Spot compression views of the terminal ileum are unremarkable. Peristalsis, as observed under fluoroscopy, is normal. Transit time is normal. Impression: Unremarkable fluoroscopic small bowel series. Signed by: Dr. Corey Parks M.D. on 08/07/2018 2:55 PM Dictated By: COREY PARKS MD [id number] Transcribed By: SAVANNAH on 08/07/18 3853 COPY TO: ALLI HILL MD ABDOMEN-1VIEW (KUB) 2017-12-13 13:15:00 [place] [address] Patient Name: ENRIQUE SO MR #: [id number] : 1980 Age/Sex: 37/F Req #: [id number] Adm Physician: Ordered by: JADYN STEVENS MD Report #: [id number] Location: CT Room/Bed: Procedure: [id number] DX/ABDOMEN-1VIEW (KUB) Exam Date: 12/13/17 Exam Time: 1215 REPORT STATUS: Signed PROCEDURE: X-RAY ABDOMEN - KUB COMPARISON: Same day CT. INDICATIONS: CALCULUS OF THE KIDNEY FINDINGS: There is a non- obstructed bowel-gas pattern. There are no calcifications projected over the renal shadows, expected course of the ureters or bladder. There are no acute osseous abnormalities. Right upper quadrant cholecystectomy clips. CONCLUSION: Normal abdominal radiograph. Dictated by: Efrem Wheeler M.D. on 12/13/2017 at 13:15 Electronically approved by: Efrem Wheeler M.D. on 12/13/2017 at 13:15 Dictated By: EFREM WHEELER MD 1315 Transcribed By: CHYNA on 12/13/17 1315 COPY TO: JADYN STEVENS MD CT ABDOMEN/PELVIS WO 2017-12-13 13:11:00 [place] [address] Patient Name: ENRIQUE SO MR #: [id number] : 1980 Age/Sex: 37/F Req #: [id number] Adm Physician: Ordered by: JADYN STEVENS MD Report #: [id number] Location: CT Room/Bed: Procedure: [id number] CT/CT ABDOMEN/PELVIS WO Exam Date: 12/13/17 Exam Time: 1233 REPORT STATUS: Signed EXAM: CT Abdomen and Pelvis WITHOUT contrast INDICATION: COMPARISON: CT dated 06/03/2017 TECHNIQUE: Abdomen and pelvis were scanned utilizing a multidetector helical scanner from the lung base to the pubic symphysis without administration of IV contrast. Absence of intravenous contrast decreases sensitivity for detection of focal lesions and vascular pathology. Coronal and sagittal reformations were obtained. Routine protocol was performed. IV CONTRAST: None ORAL CONTRAST: Water COMPLICATIONS: None RADIATION DOSE: Total DLP: 840.97 mGy*cm Estimated effective dose: (DLP x 0.015 x size factor) mSv CTDIvol has been reviewed. It is below the limits set by the Radiation Protocol Committee (RPC). FINDINGS: LINES and TUBES: None. LOWER THORAX: Unremarkable HEPATOBILIARY: Unenhanced liver is unremarkable. Hepatomegaly. No biliary ductal dilation. GALLBLADDER: Cholecystectomy. SPLEEN: No splenomegaly. PANCREAS: No focal masses or ductal dilatation. ADRENALS: No adrenal nodules KIDNEYS/URETERS: No hydronephrosis. Limited for evaluation of renal parenchyma without intravenous contrast. No stones. GI TRACT: No abnormal distention, wall thickening, or evidence of bowel obstruction. Appendix is surgically absent. PELVIC ORGANS/BLADDER: Unremarkable. Pelvic phleboliths. LYMPH NODES: No lymphadenopathy. VESSELS: Unremarkable. PERITONEUM / RETROPERITONEUM: No free air or fluid. BONES: Unremarkable. SOFT TISSUES: Unremarkable. IMPRESSION: 1. No nephrolithiasis or evidence of obstructive urolithiasis. Signed by: Dr. Efrem Wheeler MD on 12/13/2017 1:23 PM Dictated By: EFREM WHEELER MD 1323 Transcribed By: SAVANNAH on 12/13/17 1323 COPY TO: JADYN STEVENS MD Sodium Level 2017-10-28 22:22:00 Test Item Sodium Level (test code = 2951-2) 136 136-145 [facility] Ctibc1520-58-49 22:22:00* Test Item Value Reference Range Interpretation Comments Potassium Level (test code = 2823-3) 4.1 3.5-5.1 [facility] HospitalChloride [id number] 22:22:00* Test Item Value Reference Range Interpretation Comments Chloride Level (test code = 2075-0) 100 98-107 [facility] HospitalCarbon Dioxide Ajqjo1976-82-73 22:22:00* Test Item Value Reference Range Interpretation Comments Carbon Dioxide Level (test code = 8-9) 24 22-29 [facility] HospitalAnion [id number] 22:22:00* Test Item Value Reference Range Interpretation Comments Anion Gap (test code = 00409-4) 16.1 8-16 H [facility] HospitalBlood Urea Iirvrgjt3127-83-98 22:22:00* Test Item Value Reference Range Interpretation Comments Blood Urea Nitrogen (test code = 3094-0) 8 7-26 [facility] HospitalCreatinine2018-05-14 22:22:00* Test Item Value Reference Range Interpretation Comments Creatinine (test code = 2160-0) 0.67 0.57-1.11 [facility] HospitalBUN/Creatinine Tjrvh0081-38-33 22:22:00* Test Item Value Reference Range Interpretation Comments BUN/Creatinine Ratio (test code = 3097-3) 12 6-25 [facility] HospitalEstimat Glomerular Filtration Rate 2017-10-28 22:22:00* Test Item Value Reference Range Interpretation Comments Estimat Glomerular Filtration Rate (test code = 01829-1) 60- >60 Ranges were taken from the National Kidney Disease Education Program and the [facility] literature.Reference ranges:60 or greater: Umfuid10-25 ( for 3 consecutive months): Chronic kidney disease 15 or less: Kidney failureStephens Memorial HospitalGlucose Oyqmv1253-33-61 22:22:00* Test Item Value Reference Range Interpretation Comments Glucose Level (test code = DCK0556) 82 74-118 [facility] HospitalCalcium Inilw2449-72-34 22:22:00* Test Item Value Reference Range Interpretation Comments Calcium Level (test code = 89599-5) 9.4 8.4-10.2 [facility] HospitalTotal Mbgaxsxgj1656-99-92 22:22:00* Test Item Value Reference Range Interpretation Comments Total Bilirubin (test code = 1975-2) 0.3 0.2-1.2 [facility] HospitalAspartate Amino Transf (AST/SGOT) 2017-10-28 22:22:00* Test Item Value Reference Range Interpretation Comments Aspartate Amino Transf (AST/SGOT) (test code = Aspartate Amino Transf (AST/SGOT)) 16 5-34 [facility] HospitalAlanine Aminotransferase (ALT/SGPT) 2017-10-28 22:22:00* Test Item Value Reference Range Interpretation Comments Alanine Aminotransferase (ALT/SGPT) (test code = 1742-6) 13 0-55 [facility] HospitalTotal Iycboqk5577-27-96 22:22:00* Test Item Value Reference Range Interpretation Comments Total Protein (test code = 2885-2) 7.4 6.5-8.1 [facility] HospitalAlbumin2018-05-14 22:22:00* Test Item Value Reference Range Interpretation Comments Albumin (test code = 1751-7) 3.4 3.5-5.0 L [facility] HospitalGlobulin2018-05-14 22:22:00* Test Item Value Reference Range Interpretation Comments Globulin (test code = 22283-3) 4.0 2.3-3.5 H [facility] HospitalAlbumin/Globulin Hhyxw6980-27-61 22:22:00 * Test Item Value Reference Range Interpretation Comments Albumin/Globulin Ratio (test code = 1759-0) 0.9 0.8-2.0 [facility] HospitalAlkaline Ulvavdicgrl1234-30-56 22:22:00* Test Item Value Reference Range Interpretation Comments Alkaline Phosphatase (test code = 6768-6) 48 40-150 [facility] HospitalUrine [id number] 22:16:00* Test Item Value Reference Range Interpretation Comments Urine WBC (test code = 5821-4) 6-10 0-5 H [facility] HospitalUrine WEC5082-25-15 22:16:00* Test Item Value Reference Range Interpretation Comments Urine RBC (test code = 11775-3) 6-10 0-5 H [facility] HospitalUrine Aznewlkv7834-92-40 22:16:00* Test Item Value Reference Range Interpretation Comments Urine Bacteria (test code = 91400-7) RARE NONE [facility] HospitalUrine Epithelial Ycvdh0371-91-77 22:16:00 * Test Item Value Reference Range Interpretation Comments Urine Epithelial Cells (test code = 40191-1) MODERATE NONE [facility] HospitalUrine Aqczl6028-09-54 22:16:00* Test Item Value Reference Range Interpretation Comments Urine Mucus (test code = 8247-9) FEW RARE H [facility] HospitalWhite Blood Wdqpb2858-70-80 22:04:00* Test Item Value Reference Range Interpretation Comments White Blood Count (test code = 6690-2) 12.05 4.8-10.8 H [facility] HospitalRed Blood Tsteg5812-66-34 22:04:00* Test Item Value Reference Range Interpretation Comments Red Blood Count (test code = 789-8) 4.45 3.6-5.1 [facility] HospitalHemoglobin2018-05-14 22:04:00* Test Item Value Reference Range Interpretation Comments Hemoglobin (test code = 51810-9) 12.9 12.0-16.0 [facility] HospitalHematocrit2018-05-14 22:04:00* Test Item Value Reference Range Interpretation Comments Hematocrit (test code = 4544-3) 38.7 34.2-44.1 [facility] HospitalMean Corpuscular Aeiqjc6816-64-51 22:04:00* Test Item Value Reference Range Interpretation Comments Mean Corpuscular Volume (test code = 787-2) 87.0 81-99 [facility] HospitalMean Corpuscular Evkgaeeeam7807-37-39 22:04:00* Test Item Value Reference Range Interpretation Comments Mean Corpuscular Hemoglobin (test code = 785-6) 29.0 28-32 [facility] HospitalMean Corpuscular Hemoglobin Concent 2017-10-28 22:04:00* Test Item Value Reference Range Interpretation Comments Mean Corpuscular Hemoglobin Concent (test code = 786-4) 33.3 31-35 [facility] HospitalRed Cell Distribution Smkmg8496-99-75 22:04:00* Test Item Value Reference Range Interpretation Comments Red Cell Distribution Width (test code = 62340-9) 13.3 11.7 -14.4 [facility] HospitalPlatelet Btdrr8890-02-25 22:04:00* Test Item Value Reference Range Interpretation Comments Platelet Count (test code = 777-3) 281 140-360 [facility] HospitalNeutrophils (%) (Auto)2017-10-28 22:04:00 * Test Item Value Reference Range Interpretation Comments Neutrophils (%) (Auto) (test code = 38018-5) 74.2 38.7-80.0 [facility] HospitalLymphocytes (%) (Auto)2017-10-28 22:04:00 * Test Item Value Reference Range Interpretation Comments Lymphocytes (%) (Auto) (test code = 736-9) 17.3 18.0-39.1 L [facility] HospitalMonocytes (%) (Auto)2017-10-28 22:04:00* Test Item Value Reference Range Interpretation Comments Monocytes (%) (Auto) (test code = 5905-5) 7.1 4.4-11.3 [facility] HospitalEosinophils (%) (Auto)2017-10-28 22:04:00 * Test Item Value Reference Range Interpretation Comments Eosinophils (%) (Auto) (test code = 713-8) 0.6 0.0-6.0 [facility] HospitalBasophils (%) (Auto)2017-10-28 22:04:00* Test Item Value Reference Range Interpretation Comments Basophils (%) (Auto) (test code = 706-2) 0.5 0.0-1.0 [facility] HospitalIM GRANULOCYTES %2017-10-28 22:04:00* Test Item Value Reference Range Interpretation Comments IM GRANULOCYTES % (test code = IM GRANULOCYTES %) 0.3 0.0- 1.0 [facility] HospitalNeutrophils # (Auto)2017-10-28 22:04:00* Test Item Value Reference Range Interpretation Comments Neutrophils # (Auto) (test code = 751-8) 8.9 2.1-6.9 H [facility] HospitalLymphocytes # (Auto)2017-10-28 22:04:00* Test Item Value Reference Range Interpretation Comments Lymphocytes # (Auto) (test code = 72360-9) 2.1 1.0-3.2 [facility] HospitalMonocytes # (Auto)2017-10-28 22:04:00* Test Item Value Reference Range Interpretation Comments Monocytes # (Auto) (test code = 742-7) 0.9 0.2-0.8 H [facility] HospitalEosinophils # (Auto)2017-10-28 22:04:00* Test Item Value Reference Range Interpretation Comments Eosinophils # (Auto) (test code = 711-2) 0.1 0.0-0.4 [facility] HospitalBasophils # (Auto)2017-10-28 22:04:00* Test Item Value Reference Range Interpretation Comments Basophils # (Auto) (test code = 704-7) 0.1 0.0-0.1 [facility] HospitalAbsolute Immature Granulocyte (auto 2017-10-28 22:04:00* Test Item Value Reference Range Interpretation Comments Absolute Immature Granulocyte (auto (niki t code = Absolute Immature Granulocyte (auto) 0.04 0-0.1 [facility] HospitalUrine Kcsgw2581-28-50 22:04:00* Test Item Value Reference Range Interpretation Comments Urine Color (test code = 5778-6) YELLOW YELLOW [facility] HospitalUrine Remscfx4617-74-27 22:04:00* Test Item Value Reference Range Interpretation Comments Urine Clarity (test code = 69865-8) CLEAR CLEAR [facility] HospitalUrine Specific Javxcqr3528-31-99 22:04:00 * Test Item Value Reference Range Interpretation Comments Urine Specific [place] (test code = 5811-5) 1.015 1.010-1.02 5 [facility] HospitalUrine [id number] 22:04:00* Test Item Value Reference Range Interpretation Comments Urine pH (test code = 57435-2) 7 5-7 [facility] HospitalU[facility] Leukocyte Ptueuhwc6605-85-48 22:04:00* Test Item Value Reference Range Interpretation Comments Urine Leukocyte Esterase (test code = 5799-2) 1+ NEGATIVE H [facility] HospitalUrine Hmyjrrl9660-27-85 22:04:00* Test Item Value Reference Range Interpretation Comments Urine Nitrite (test code = 30056-7) NEGATIVE NEGATIVE [facility] HospitalUrine Sqcjpmd1099-76-52 22:04:00* Test Item Value Reference Range Interpretation Comments Urine Protein (test code = 5804-0) NEGATIVE NEGATIVE [facility] HospitalUrine Glucose (UA)2017-10-28 22:04:00* Test Item Value Reference Range Interpretation Comments Urine Glucose (UA) (test code = 2349-9) NEGATIVE NEGATIVE [facility] HospitalUrine Hicfirw3298-33-67 22:04:00* Test Item Value Reference Range Interpretation Comments Urine Ketones (test code = 77093-8) 1+ NEGATIVE H [facility] Atjnwmnroddg2312-48-84 22:04:00* Test Item Value Reference Range Interpretation Comments Urine Urobilinogen (test code = 45996-3) 0.2 0.2-1 [facility] HospitalUrine Opalkwvih4294-21-40 22:04:00* Test Item Value Reference Range Interpretation Comments Urine Bilirubin (test code = 1978-6) NEGATIVE NEGATIVE [facility] HospitalUrine Xnrxn8431-88-01 22:04:00* Test Item Value Reference Range Interpretation Comments Urine Blood (test code = 77897-8) 1+ NEGATIVE H [facility] HospitalUrine Ujjl7675-55-06 08:10:00* Test Item Value Reference Range Interpretation Comments Urine Test (test code = 2106-3) NEGATIVE NEGATIVE [facility] HospitalBedside Gqwsxpz3624-24-12 06:12:00* Test Item Value Reference Range Interpretation Comments Bedside Glucose (test code = 02120-1) 130 70-120 H Meter ID: [id number] Memorial HospitalAmylase Level 2017-06-03 10:34:00* Test Item Value Reference Range Interpretation Comments Amylase Level (test code = 1798-8) 33 25-125 [facility] HospitalLipase2017-12-18 10:34:00* Test Item Value Reference Range Interpretation Comments Lipase (test code = 3040-3) 28 8-78 [facility] Alicet[facility] Xyhdctkbrykm9721-98-49 17:33:00* Test Item Value Reference Range Interpretation Comments Stool Calprotectin (test code = 45676-9) -16 0-120 Concentration Interpretation Follow-Up<16 - 50 ug/g Normal None>50 -120 ug/g Borderline Re-evaluate in 4-6 weeks >120 ug/g Abnormal Repeat as clinically indicatedPerformed at: - [facility] CenterWduulsewki[address] [place] [address] [id number] Director: Clive Quintana MD, Phone: [phone] Memorial HospitalClostridium Difficile Toxin A & M8340-45-16 22:17:00* Test Item Value Reference Range Interpretation Comments Clostridium Difficile Toxin A & B (test code = 093233853) NEGATIVE NEGATIVE Testing on stool aspirate specimens is outside whipper beater claims since specime n type not validated on this assay.[facility] Alicetool Lactoferrin (LAB)2017-05-27 11:43:00* Test Item Value Reference Range Interpretation Comments Stool Lactoferrin (LAB) (test code = 37236-4) NEGATIVE NEGATIVE Testing on stool aspirate specimens is outside whipper beater claims since specime n type not validated on this assay.[facility] AliceMALL BOWEL SERIES [place] [address] Patient Name: ENRIQUE SO MR #: [id number] : 1980 Age/Sex: 36/F Req #: [id number] Adm Physician: Ordered by: ALLI HILL MD Report #: [id number] Location: DX Room/Bed: Procedure: [id number] DX/SMALL BOWEL SERIES Exam Date: 10/28/17 Exam Time: 0800 REPORT STATUS: S igned PROCEDURE: SMALL BOWEL SERIES FLUOROSCOPY TIME: 0.9 MINUTES Comparison: CT abdomen pelvis [id number]. Indications: ABDOMINAL CRISTIAN N ALL OVER, CHRONS Technique: Small bowel follow through exam was perform ed using oral barium. Preliminary image was obtained before administration o f contrast and serial overhead images were obtained after administration o f oral barium. Fluoroscopy was performed and spot images were obtained. Findings: SMALL BOWEL FOLLOW THROUGH: Small bowel loops are normal in caliber and distribution. Spot compression views of the terminal ileum a re normal. Mucosal irregularity involving a loop of ileum in the left lower quadrant. Prolonged transit time with ingested contrast reaching the cecum af ter approximately 3.5 hours.. IMPRESSION: Mucosal irregularity i nvolving an ileal loop in the left lower quadrant suggestive of active inflam mation in this patient with history of Crohn's disease. No evidence of bowel obstruction. Mildly prolonged transit time. Dictated by: Corey Parks M.D. on 10/31/2017 at 8:40 Electronically approved by: Corey Parks M.D. on 10/31/2017 at 8:40 Dictated By: COREY PARKS MD [facility] Signed By: COREY PARKS MD on 10/31/17 0840 Transcribed By: CHYNA on 0840 COPY TO: ALLI HILL MD ABDOMEN LIMITED [place] [address] Patient Name: ENRIQUE SO MR #: [id number] : 1980 Age/Sex: 36/F Req #: [id number] Adm Physician: Ordered by: ALLI HILL MD Report #: [id number] Location: US Room/B ed: Procedure: [id number] US/US ABDOMEN LIMITED Exam Date: Exam Time: REPORT STATUS: Signed PRO CEDURE: LIMITED ABDOMINAL ULTRASOUND COMPARISON: None. INDICATIONS: RU Q Pain FINDINGS: Liver: 15.1 cm. Increased hepatic parenchymal ec hogenicity. No focal mass. Main portal vein: 1.2 cm. Hepatopedal flow. Gallbladder: No echogenic calculi, gallbladder wall thickening, or perich olecystic fluid. Common Bile Duct: 4.0 mm. No echogenic filling defect. Son ographic Baez's sign: Negative. Right kidney: 12.8 cm. No solid or cysti c mass, echogenic calculi, or hydronephrosis. Normal parenchymal echogenicity . The pancreas, inferior vena cava, and aorta were insufficiently visua lized secondary to increased body habitus and overlying bowel gas. As cites: None. CONCLUSION: 1. No acute sonographic abnormality. 2 . Hepatic steatosis. Dictated by: Warner Booth M.D. on 018 at 9:31 Electronically approved by: Warner Booth M.D. on 06/26/2017 a t 9:31 Dictated By: WARNER BOOTH MD 0 Transcribed By: CHYNA on 06/26/17930 COPY TO: ALLI HILL MD HEPTOBILIARY W [place] [address] Patient Name: ENRIQUE SO MR #: [id number] : 1980 Age/Sex: 36/F Req #: [id number] Adm Physician: Ordered by: ALLI HILL MD Report #: [id number] Location: Room/Bed: Procedure: [id number] NM/HEPTOBILIARY W PHARM Exa m Date: 06/26/17 Exam Time: 1500 REPORT STATUS: Signed Hepatobiliary Scan with Gallbladder Ejection Fraction Clinical i nformation: 36 F with RUQ abdominal pain; irritable bowel syndrome. Techniq ue: Following intravenous administration of 6.8 millicuries of Tc-99m mebrofen in, dynamic images of the abdomen in the anterior projection were obtained thr ough 30 minutes. Sincalide (CCK analog) 2.9 micrograms was administered intra venously over 30 minutes with additional imaging for determination of gallblad juliann ejection fraction. Discussion: Perfusion of the liver is normal. Extra ction of tracer by the liver parenchyma is normal. Tracer appears promptly wi thin the biliary tract. The gallbladder begins to fill at 5 minutes post inje ction of tracer and fills adequately. Tracer is seen in the small bowel by 25 minutes. There is no contractile response by the gallbladder to the pharmaco logic dose of sincalide. No emptying of the gallbladder occurs during the 30 minute infusion. Impression: 1. Filling of the gallbladder exclude s acute cystic duct obstruction/acute cholecystitis. 2. The gallbladder ejection fraction is undefined as there is no emptying of the gallbladder duri ng the infusion of sincalide. This absence of a contractile response to sinca lide supports the clinical diagnosis of chronic cholecystitis/gallbladder dysk inesia. Signed by: Dr. Reyna Whittington M.D. on 06/26/2017 6:37 PM Dictat ed By: REYNA WHITTINGTON MD 36 Transcribed By: SAVANNAH on 06/26/171836 COPY TO: ALLI HILL MD CT ABDOMEN/PELVIS W [place] [address] Patient Name: ENRIQUE SO MR #: [id number] : 1980 Age/Sex: 36/F Req #: [id number] Adm Physician: Ordered by: CARROLL LARSON MD Report #: [id number] Location: ER Room/Bed: Procedure: [id number] CT/CT ABDOMEN/PELVIS W Exam D ate: 06/03/17 Exam Time: 1109 REPORT STATUS: Si gned PROCEDURE: CT ABDOMEN AND PELVIS WITH CONTRAST TECHNIQUE: The a bdomen and pelvis were scanned utilizing a multidetector helical scanner from the diaphragm to the lesser trochanter after the IV administration of 100 cc of Isovue 370 and the oral administration of Gastrografin intermixed with wa ter. Coronal and sagittal multiplanar reformations were obtained. DLP: 912.11 mGy-cm COMPARISON: None. INDICATIONS: ABDOMINAL PAIN FINDINGS: LOWER THORAX: Normal. HEPATOBILIARY: No focal hepatic lesio ns. No biliary ductal dilatation. SPLEEN: No splenomegaly. PANCREAS: No foc al masses or ductal dilatation. ADRENALS: No adrenal nodules. KIDNEYS/UR ETERS: No hydronephrosis, stones, or solid mass lesions. Nonobstructing 3 mm stone at the left ureterovesical junction. PELVIC ORGANS/BLADDER: There is 4.4 cm right adnexal cyst and a 2.6 cm left adnexal cyst. PERITONEUM / RET ROPERITONEUM: No free air or fluid. LYMPH NODES: No lymphadenopathy. VESSELS : Unremarkable. GI TRACT: No distention or wall thickening. Calcium contai vaibhav pills in the cecum. There are clips near the cecum and appendiceal regio n. Single clip is present in the descending colon. BONES AND SOFT TISSU ES: Mild degenerative changes of the thoracic and lumbar spine. IMPRES ROBERT: 1. Nonobstructing distal left ureteral stone. 2. Bilateral adnexal cysts. Cb Fox D.O. Dictated by: Cb Fox D.O. on 06/03/2017 at 11:49 Electronically approved by: Cb Fox D.O. on 08/04/2016 at 11:49 Dictated By: CB FOX DO Electronical ly Signed By: CB FOX DO on 06/03/17 1149 Transcribed By: CHYNA on 114 COPY TO: CARROLL LARSON MD
--- OUTSIDE RECORDS SUMMARY | 2020-03-17 13:08 | XMS REPORT | Continuity of Care Document ---
Author Author [employer] Organization [employer] Address Unknown Phone Unavailable Care Team Providers Care Surfboard Maker Name Role Phone Aseptia Information POKKT Unavailable Un available Problems Problem Status Onset Date Classification Date Reported Comments Source 719.4 - PAIN IN JOINT Active 04/14/2012 [facility] Medications No Data Provided for This Section Allergies, Adverse Reactions, Alerts No Known Medication Allergies Immunizations No Data Provided for This Section Results No Data Provided for This Section Pathology Reports No Data Provided for This Section Diagnostic Reports No Data Provided for This Section Consultation Notes No Data Provided for This Section Discharge Summaries No Data Provided for This Section History and Physicals No Data Provided for This Section Vital Signs No Data Provided for This Section Encounters Location Location Details Encounter Type Encounter Number Reason For Visit Attending Provider ADM Date DC Date Status Source OD [id number] 719.4 - PAIN IN JOINT BERENICE DELGADO 04/14/2012 Active [facility] Procedures No Data Provided for This Section Assessment and Plan No Data Provided for This Section Plan of Care No Data Provided for This Section Social History No Data Provided for This Section Family History No Data Provided for This Section Advance Directives No Data Provided for This Section Functional Status No Data Provided for This Section
--- NOTE | 2020-03-17 13:40 | Diagnostic Imaging Report ---
Examination: CT head without contrast Clinical Indication: ^hypertension ^20200317 ^1330 ^N; headache. Technique: Transaxial noncontrast images from the skull base through the vertex were obtained. Sagittal and coronal reformatted images were done. Dose modulation, iterative reconstruction, and/or weight based adjustment of the mA/kV was utilized to reduce the radiation dose to as low as reasonably achievable. Comparison: None. Findings: Scalp: No abnormalities. Bones: Intact. No fractures. No blastic or lytic lesions. Brain sulci: Appropriate for patient's age. Ventricles: Normal in size and configuration. No hydrocephalus. Extra-axial space: No abnormalities. Parenchyma: No abnormal densities. No masses, hemorrhage, or acute or chronic cortical based vascular insults. Suprasellar region: No abnormalities. Craniocervical junction: The foramen magnum is patent. No Chiari one malformation. Impression: No acute intracranial abnormality. Signed by: Dr. Xochitl Ervin M.D. on 03/17/2020 1:37 PM
--- NOTE | 2020-03-17 13:43 | Diagnostic Imaging Report ---
Exam: CXR 2 VIEW - HOPD Date: 03/17/2020 1:39 PM INDICATION: ^hypertension ^20200317 ^1330 Comparison: None FINDINGS: Lines/Tubes:Overlying EKG leads are noted Lungs:The lungs are well inflated. No focal consolidation or pulmonary edema. Pleura:No pleural effusion. No pneumothorax. Heart/Mediastinum:The cardiomediastinal silhouette is normal in size and contour. Bones/Soft Tissues: No acute osseous abnormality. Multilevel degenerative changes are noted, most prominent in the midthoracic spine with moderate joint space narrowing and mild anterior wedging of the thoracic vertebral bodies. Upper abdomen: Unremarkable. Negative for free air underneath the hemidiaphragm. IMPRESSION: Negative for acute intrathoracic process. Signed by: Kal Dumas MD on 03/17/2020 1:40 PM
[2020-03-17] MEDS ORDERED: KETOROLAC TROMETHAMINE 30 MG/ML VIAL ONE (13:50)
[2020-03-17] MEDS ORDERED: MACROBID 100 M100 MG PO (14:58)
[2020-03-17] MEDS ORDERED: ULTRAM50 MG PO (14:58)
[2020-03-17 15:18] VITALS: BP 137/65
--- NOTE | 2020-03-17 16:16 | NUR ---
Called pt to come back for a redraw on cardiac enzymes to send across the street.
--- NOTE | 2020-03-17 16:35 | NUR ---
Cardiac enzymes redrawn and sent across the street after running here again.
[2020-03-17 17:58] LABS: CREATINE KINASE MB 0.9 ng/mL (0-5.0)
== END 2020-03-17 15:27 | disposition home or self-care (01) ==
LOC: FSED 12:40
DX: R51.9 Headache, unspecified (principal); N39.0 Urinary tract infection, site not specified; E11.9 Type 2 diabetes mellitus without complications; K21.9 Gastro-esophageal reflux disease without esophagitis
CPT/HCPCS: 36415; 70450; 71046; 80053; 81003; 81025; 82550; 82553; 84484; 85025; 93005; 96374; 99284; J1885

== ENCOUNTER 2021-01-04 10:31 | Emergency (ER) | payer OTHER ==
[~2021-01-04] VITALS: Ht 177.8 cm; Wt 120.2 kg
[~2021-01-04 10:31] MED LIST changes: +MACROBID 100 M100 MG PO; +ULTRAM50 MG PO
[2021-01-04] MEDS ORDERED: SODIUM CHLORIDE 0.9% 1000ML 1,000 ML IV STA (10:46)
[2021-01-04] MEDS ORDERED: ONDANSETRON HCL INJ 2MG/ML 2ML 2 MG/ML VIAL IV STA (10:46)
[2021-01-04] MEDS ORDERED: MECLIZINE HCL 12.5 MG TAB PO STA (10:46)
[2021-01-04] MEDS ORDERED: MECLIZINE HCL 12.5 MG TAB ONE (11:20)
[2021-01-04] MEDS ORDERED: ONDANSETRON HCL INJ 2MG/ML 2ML 2 MG/ML VIAL ONE (11:20)
[2021-01-04] MEDS ORDERED: SODIUM CHLORIDE 0.9% 1000ML 1,000 ML ONE (11:20)
[2021-01-04 12:33] VITALS: BP 170/103
[2021-01-04] MEDS ORDERED: LOSARTAN POTASS25 MG PO (12:39)
[2021-01-04] MEDS ORDERED: ONDANSETRON ODT4 MG PO (12:39)
== END 2021-01-04 12:44 | disposition home or self-care (01) ==
LOC: FSED 10:55
DX: R42 Dizziness and giddiness (principal); E11.65 Type 2 diabetes mellitus with hyperglycemia; K50.90 Crohn's disease, unspecified, without complications
CPT/HCPCS: 70450; 80053; 81003; 81025; 83518; 84484; 85025; 87400; 93005; 99284; J2405; J7030; J8597

== ENCOUNTER 2025-03-10 16:40 | Emergency (ER) | payer OTHER ==
[~2025-03-10] VITALS: Ht 175.3 cm; Wt 117.5 kg
[~2025-03-10 16:40] MED LIST changes: +AMOX TR-K CLV1 EAC2 PO; +BIOTIN1 MG; +CRESTOR10 MG PO; +DIPHENHYDRAMINE25 M2 PO; +FENOFIBRATE54 MG; +HYDROCODON-ACE1 EA12 PO; +LOSARTAN POTASS25 MG PO; +ONDANSETRON ODT4 MG PO; +PEPCID20 MG PO; +REGLAN10 MG PO
[2025-03-10 16:56] VITALS: RESP 16
[2025-03-10] MEDS ORDERED: [UNRECOGNIZED DRUG - OTHER] (17:18)
[2025-03-10] MEDS ORDERED: METOCLOPRAM5 MG/5 ML PO (17:18)
[2025-03-10] MEDS ORDERED: ROSUVASTATIN CA10 MG (17:18)
[2025-03-10] MEDS ORDERED: HYDROXYZINE HCL25 MG PO (17:18)
[2025-03-10] MEDS ORDERED: LOSARTAN POTAS100 MG PO (17:18)
[2025-03-10] MEDS ORDERED: MOUNJARO5 MG/0.5 M (17:18)
[2025-03-10] MEDS ORDERED: DULOXETINE HCL60 MG (17:18)
[2025-03-10] MEDS: ONDANSETRON HCL INJ 2MG/ML 2ML 2 MG/ML VIAL IV STA (17:55)
[2025-03-10] MEDS: SODIUM CHLORIDE 0.9% 1000ML 1,000 ML IV ONE (17:55)
[2025-03-10 18:45] VITALS: BP 146/70; PULSE 63; TEMP 97.8
[2025-03-10 18:50] VITALS: PULSE 63; TEMP 97.3; O2SAT 98
== END 2025-03-10 18:50 | disposition home or self-care (01) ==
LOC: FSED 17:10
DX: R19.7 Diarrhea, unspecified (principal); K50.90 Crohn's disease, unspecified, without complications; R11.2 Nausea with vomiting, unspecified; K21.9 Gastro-esophageal reflux disease without esophagitis; I10 Essential (primary) hypertension; E11.9 Type 2 diabetes mellitus without complications
CPT/HCPCS: 80048; 83880; 96374; 99283; J2405; J7030